=== PATIENT | female | born 1965 | race Caucasian/White ===

== ENCOUNTER → 2016-09-29 | Day surgery (SDC) | payer OTHER ==
[~2016-09-29] MED LIST: ACETAMINOPHEN 1000 MG/100 ML VIAL IV ONE; FLUMAZENIL 1 MG/10 ML VIAL IV ONE; LACTATED RINGER'S 1000 ML INJ 1,000 ML ONE; LIDOCAINE 1%/EPINEPHrine 1:100,000 SOLN 20 ML VIAL ONE; MIDAZOLAM HCL 2 MG/2 ML VIAL ONE; ONDANSETRON HCL 4 MG/2 ML VIAL IV PUSH ONE; PROPOFOL 200 MG/20 ML AMP IV ONE; ceFAZolin INJ 1,000 MG VIAL ONE
--- NOTE | 2016-09-29 13:00 | TN ---
cc: SID VILLATORO M.D. DATE OF SURGERY 09/29/2016 PREOPERATIVE DIAGNOSIS Lipodystrophy of bilateral arms. POSTOPERATIVE DIAGNOSIS Lipodystrophy of bilateral arms. PROCEDURE [facility]. SURGEON Sid Villatoro MD ANESTHESIA LMA general plus a total of 1000 cc of tumescent fluid in both arms 500%. COMPLICATIONS None. TOTAL OUT 1000 cc. PROCEDURE She was properly consented, marked, anesthetized, the skin sterilized with Betadine solution and sterile draping applied. Tumescence was done of 500 cc per breast, in a combination of 1000 cc of normal saline, 30 cc of 1% lidocaine with epinephrine was mixed with 1 cc of epinephrine 1:1000. Energy was utilized utilizing the [employer] technology a total of 20,000 joules, 10,000 per arm. Each and every one the punctures wounds were done utilizing the 11-blade were utilized to not only deliver the energy but to suction with Micro[employer]ire the fat effluence. Approximately 500+ on each side was removed of fat. The puncture wounds were closed utilizing 5-0 chromic suture and Steri-Strips applied and the whole area was wrapped utilizing Kerlix roll and Keon. Good viability of the tissue was noted at the end of the case. The patient was awoken, extubated in the operating room and transferred back to the Post-Anesthesia Care Unit in stable condition. No complications appreciated. The patient tolerated the procedure fairly well. MD LINDA Cole/JOSE EDUARDO /12:40 PM /12:55 PM
== END | disposition home or self-care (01) ==
LOC: ESDC 10:22
PROVIDERS: ATTEND Plastic Surgery
DX: Z41.1 Encounter for cosmetic surgery (principal)
CPT/HCPCS: 00400; 15878; J0131; J0690; J2250; J2405; J3010; J7120